=== PATIENT | male | born 1995 | race Caucasian/White ===

== ENCOUNTER 2018-09-30 04:29 | Emergency (ER) | payer BC, OTHER ==
[~2018-09-30] VITALS: Wt 102.8 kg
[2018-09-30] MEDS ORDERED: SOD CHLORIDE 0.9% 500 ML IV STA (06:30)
[2018-09-30] MEDS ORDERED: KETOROLAC 30 MG INJ IV STA (06:30)
--- NOTE | 2018-09-30 06:44 | ERD ---
ER Documentation Chief Complaint Chief Complaint L GROIN PAIN; DULL FOR 2 YEARS, NOW BECOMING PAINFUL HPI This is a 23-year-old male with a nonsignificant past medical history presents ED with left groin pain that is been present for the past 2 years. Patient states that the pain comes and goes and has been worsening. Patient feels the pain most when he is walking. Denies fever, chills, nausea, vomiting, diarrhea, constipation, dysuria, hematuria, penile discharge, melena, hematochezia, hemoptysis, hematemesis. ROS All systems reviewed and are negative except as per history of present illness. Allergies Allergies: Coded Allergies: No Known Drug Allergy (Verified Allergy, Mild, 11/23/10) PMhx/Soc History of Surgery: No Anesthesia Reaction: No Hx Neurological Disorder: No Hx Respiratory Disorders: No Hx Cardiac Disorders: No Hx Psychiatric Problems: No Hx Miscellaneous Medical Probl: No Hx Alcohol Use: No Hx Substance Use: No Hx Tobacco Use: No FmHx Family History: No diabetes Physical Exam Vitals Vital Signs Date Temp Pulse Resp B/P (MAP) Pulse Ox O2 O2 Flow FiO2 Time Delivery Rate 09/30/18 99.3 94 18 131/65 99 04:34 (87) Physical Exam Physical Exam Vitals signs: Reviewed by me. General: Well developed, well nourished, in no acute distress. Patient is awake and alert. Head: Normocephalic, atraumatic. Eyes: Normal conjunctiva, Pupils PERRLA, EOM intact grossly ENT: Pharynx is clear, Moist mucous membranes, external ears, nose and mouth normal Neck: Supple, no masses, lymphadenopathy or JVD Respiratory: Clear to auscultation bilaterally with no wheezing, rhonchi, rales, no distress Cardiovascular: RRR, no murmurs, rubs, or gallops Abdominal: Soft, non-tender, non-distended, no peritoneal signs Exam: Candy Butcher present Scrotum: Normal Hernia: None Testes/Epid: Non-tender w/ normal lie Cremaster: Reflex intact Lymph: No inguinal lymphadenopathy Discharge: None Back: No midline tenderness. No flank tenderness Neurologic: Alert and oriented, moving all extremities, normal speech, no focal weakness, no cerebellar signs. Normal mentation Skin: warm and dry, No rash Psych: Normal mood Result Diagram: 09/30/18 0653 09/30/18 0654 Results 24 hrs Laboratory Tests Test 09/30/18 06:53 09/30/18 06:54 White Blood Count 14.5 10^3/ul Red Blood Count 5.36 10^6/ul Hemoglobin 15.1 g/dl Hematocrit 45.6 % Mean Corpuscular Volume 85.1 fl Mean Corpuscular Hemoglobin 28.2 pg Mean Corpuscular Hemoglobin Concent 33.1 g/dl Red Cell Distribution Width 12.7 % Platelet Count 235 10^3/UL Mean Platelet Volume 11.8 fl Immature Granulocytes % 0.500 % Neutrophils % 87.0 % Lymphocytes % 7.0 % Monocytes % 5.0 % Eosinophils % 0.1 % Basophils % 0.4 % Nucleated Red Blood Cells % 0.0 /100WBC Immature Granulocytes # 0.070 10^3/ul Neutrophils # 12.6 10^3/ul Lymphocytes # 1.0 10^3/ul Monocytes # 0.7 10^3/ul Eosinophils # 0.0 10^3/ul Basophils # 0.1 10^3/ul Nucleated Red Blood Cells # 0.0 10^3/ul Urine Color YELLOW Urine Clarity CLEAR Urine pH 6.0 Urine Specific [place] 1.026 Urine Ketones NEGATIVE mg/dL Urine Nitrite NEGATIVE mg/dL Urine Bilirubin NEGATIVE mg/dL Urine Urobilinogen 1+ mg/dL Urine Leukocyte Esterase NEGATIVE Zhao/ul Urine Hemoglobin NEGATIVE mg/dL Urine Glucose NEGATIVE mg/dL Urine Total Protein NEGATIVE mg/dl Sodium Level 142 mmol/L Potassium Level 3.5 mmol/L Chloride Level 103 mmol/L Carbon Dioxide Level 27 mmol/L Anion Gap 12 Blood Urea Nitrogen 15 mg/dl Creatinine 0.98 mg/dl Est Glomerular Filtrat Rate mL/min > 60 mL/min Glucose Level 140 mg/dl Calcium Level 9.6 mg/dl Total Bilirubin 0.3 mg/dl Direct Bilirubin 0.00 mg/dl Indirect Bilirubin 0.3 mg/dl Aspartate Amino Transf (AST/SGOT) 21 IU/L Alanine Aminotransferase (ALT/SGPT) 29 IU/L Alkaline Phosphatase 74 IU/L Total Protein 8.1 g/dl Albumin 4.6 g/dl Globulin 3.50 g/dl Albumin/Globulin Ratio 1.31 Lipase 34 U/L Current Medications Medications Dose Sig/Rayna Start Time Status Last (Trade) Ordered Route PRN Stop Time Admin Dose Reason Admin Sodium 500 ml @ Q1H STAT 09/30/18 DC 09/30/18 Chloride 500 mls/hr IV 06:30 06:55 09/30/18 07:29 Ketorolac 30 mg ONCE STAT 09/30/18 DC 09/30/18 Tromethamine IV 06:30 06:54 (Toradol) 09/30/18 06:32 Procedures/[place] [id number] Radiology Main Line: [phone] DIAGNOSTIC IMAGING REPORT Patient: CHERIE QUESADA : 1995 Age: 23 Sex: M MR #: [id number] DOS: 09/30/18629 Ordering MD: EVELYN CHOE PA-C [facility]: [facility] Room/Bed: PROCEDURE: US Scrotum. CLINICAL INDICATION: Left groin pain TECHNIQUE: Multiple sonographic images of the scrotal region were obtained utilizing a linear array transducer with grayscale and color-flow and a Doppler imaging. The images were reviewed on a high-resolution PACS workstation. COMPARISON: No prior studies are available for comparison. FINDINGS: The right testicle is well visualized and has a normal echotexture. No focal areas of abnormal echogenicity are visualized. The right testicle measures measures 4.8 x 2.3 x 3.3 cm. There is normal color-flow. The right epididymis is visualized and unremarkable in appearance. There is normal color-flow. The left testicle is well visualized and has a normal echotexture. No focal areas abnormal echogenicity are visualized. The left testicle measures measures 4.1 x 2.4 x 3.1 cm. There is normal color-flow. The left epididymis is visualize d and is unremarkable in appearance. There is normal color-flow. The scrotal wall is unremarkable. No swelling or edema is seen. There is a tiny left hydrocele. IMPRESSION: Normal scrotal ultrasound. .Gerber Figueroa MD, MD Date Time Electronically viewed and signed by .Gerber Figueroa MD, on 09/30/2018 08:39 .A/ CC: EVELYN CHOE PA-C [id number] LAB INTERPRETATION: CBC remarkable for an elevated white blood cell count of 14.5 with an elevated neutrophil percentage of 87.0%, no decreased hemoglobin and decreased hematocrit Chemistry shows no evidence of significant electrolyte abnormalities or renal insufficiency Liver function test shows no evidence of acute biliary or hepatic dysfunction Lipase shows no evidence of acute pancreatitis UA unremarkable ER COURSE: The patient was given IV normal saline and Toradol The medication was well tolerated and the patient reports improvement in symptoms. The patient was stable throughout ED course. I kept the patient and/or family informed of laboratory and diagnostic imaging results throughout the emergency room course. The patient was promptly evaluated and a treatment plan was devised based on H&P and other data. This plan was discussed with the patient who agreed and had no further questions or concerns prior to discharge. MEDICAL DECISION MAKING: This is a 23-year-old male with a nonsignificant past medical history presents ED with left groin pain that is been present for the past 2 years. Patient states that the pain comes and goes and has been worsening. On physical ex amination there is no inguinal hernia palpable. There is no evidence of an obstructed hernia, strangulated hernia or incarcerated hernia. Proceeded with ordering ultrasound of testicle to rule out torsion. There is good flow seen on the ultrasound to the testicle with no evidence of testicular torsion or epididymitis. At this time there is no genitourinary or gastrointestinal emergency. No evidence of appendicitis, small bowel obstruction, perforated viscus, cholecystitis, pancreatitis, testicular torsion, sepsis, among others. Vitals are stable patient can be managed close outpatient follow-up. Advised patient to follow-up with urology as well as his primary care physician in the next 48 hours. Return to ED with any worsening symptoms DISPOSITION PLAN: We discussed follow up with the patient's primary care doctor within 24 to 48 hours. Patient counseled regarding my diagnostic impression and care plan. Prior to discharge all questions answered. Pt agrees with treatment plan and understands strict return precautions. Precautionary instructions provided including instructions to return to the ER if not improving or for any worsening or changing symptoms or concerns. SPECIALIST FOLLOW UP RECOMMENDED: urology Patient has been advised to follow up with primary care in 1-2 days. Disclaimer: Inadvertent spelling and grammatical errors are likely due to EHR/dictation software use and do not reflect on the overall quality of patient care. Also, please note that the electronic time recorded on this note does not necessarily reflect the actual time of the patient encounter. Departure Diagnosis: Primary Impression: Left groin pain Condition: Stable Patient Instructions: Anatomy of the Abdomen and Groin, Groin Strain Referrals: LINNEA MAYERS MD, MEHRAN RAMIN, [facility] Additional Instructions: Patient advised to return to the ED immediately for new or worsening symptoms. Patient advised to follow up with primary care provider in the next 24-48 hours. Patient verbalized understanding and agrees with treatment plan and course of action. If patient has no primary care they may follow up with one of the [facility] clinics listed on the following page or one of the options listed below [facility] + [facility] [address] [place] [id number] or [facility] [address] [place] [address] or [facility] [address] [place] [address] EVELYN CHOE PA-C Sep 30, 2018 06:44
[2018-09-30] MEDS ORDERED: IBUP-1542 PO (08:53)
[2018-09-30] MEDS ORDERED: IBUPROFEN 600 MG TAB PO ONE (09:00)
[2018-09-30 09:09] VITALS: BP 106/54; PULSE 93; RESP 17
== END 2018-09-30 09:10 | disposition home or self-care (01) ==
LOC: FTE 04:29
DX: R10.32 Left lower quadrant pain (principal)
CPT/HCPCS: 36415; 76870; 80053; 81003; 83690; 85025; 96361; 96374; J1885; J7040; Z7502; Z7610